=== PATIENT | female | born 1995 | race Caucasian/White ===

== ENCOUNTER 2021-08-07 15:41 | Inpatient (IN) ==
[2021-08-07 16:28] LABS: Basophils # (auto) 0.03 K/uL (0-0.2); Basophils % (auto) 0.3 %; Eosinophils # (auto) 0.06 K/uL (0-0.5); Eosinophils % (auto) 0.6 %; Hematocrit (blood only) 38.6 % (37-47); Hemoglobin 13.3 g/dL (12.0-16.0); Immature Granulocytes # (auto) 0.01 K/uL (0.00-0.02); Immature Granulocytes % (auto) 0.1 %; Lymphocytes # (auto) 0.95 K/uL (1.2-3.4); Lymphocytes % (auto) 10.2 %; Mean Corpuscular Hemoglobin 31.1 pg (25-34); Mean Corpuscular Hgb Conc 34.5 g/dL (32-36); Mean Corpuscular Volume 90.2 fL (80-100); Mean Platelet Volume 10.8 fL (7.4-10.4); Monocytes # (auto) 1.04 K/uL (0.11-0.59); Monocytes % (auto) 11.2 %; Neutrophils # (auto) 7.18 K/uL (1.4-6.5); Neutrophils % (auto) 77.6 %; Platelet Count 213 K/uL (130-400); RDW Coefficient of Variation 12.5 % (11.5-14.5); Red Blood Count 4.28 M/uL (4.2-5.4); White Blood Count 9.27 K/uL (4.8-10.8)
[2021-08-07 16:52] LABS: Albumin Globulin Ratio 1.5 (0.9-2); Albumin Level 4.6 gm/dl (3.4-5.0); BUN Creatinine Ratio 12.8 (10-20); Bilirubin,Total 0.7 mg/dl (0.2-1.0); Calcium 9.3 mg/dl (8.5-10.1); Creatinine Clr Calc Pharmacy 100.5 ml/min; Est GFR (African American) 119.9 ml/min; Est GFR (Non-African American) 103.5 ml/min; Globulin 3.1 gm/dl (2.5-4.0); Total Protein 7.7 gm/dl (6.0-8.3)
[2021-08-07] MEDS ORDERED: SODIUM CHLORIDE 0.9% 1000ML 1,000 ML IV ONE (18:19)
--- NOTE | 2021-08-07 18:21 | Emergency Department Note ---
Impression & Plan Acute appendicitis ADMIT ED Provider Note HPI: The patient is a 26-year-old female who presents the emergency department with a chief complaint of right lower quadrant abdominal pain. Patient states this pain has been constant for the past 2 days. Patient denies any nausea or vomiting, denies any vaginal bleeding or vaginal discharge. Denies any concern for . On arrival to the ED the patient is in no acute distress, she does have some mild tenderness in the right lower quadrant on my exam but she is otherwise hemodynamically stable and afebrile on presentation. ROS: -GI: Right lower quadrant abdominal pain *10 point review systems was conducted and is otherwise negative unless stated above *Outpatient medications and allergy history reviewed PE: General: Alert, NAD HEENT: Normocephalic, atraumatic Eyes: Extraocular eye movement is intact, no scleral erythema Pulmonary: Clear to auscultation bilaterally, no wheezing Cardio: Regular rate and rhythm GI: Abdomen is soft, moderate tenderness to palpation in the right lower quadrant without guarding or rigidity : No suprapubic tenderness MSK: No evidence of trauma or malformation of the extremities, no edema Skin: No evidence of rash Neuro: Alert, no focal deficits Psychiatric: Cooperative Medical Decision Making: Patient presented to the emergency department with 3 days of right lower quadrant abdominal pain. Shortly after arrival IV was established, lab work was obtained, lab work is generally unremarkable, CT imaging of the abdomen pelvis unfortunately does show evidence of acute appendicitis. My reassessment the patient is resting comfortably in bed, rates her pain at a 3 out of 10. She has not had any vomiting here in the ED. She states this pain is been ongoing for 3 days. IV ceftriaxone was ordered, patient was made n.p.o., I did discuss the case with on-call general surgery, Dr. Blanco he did accept the patient to a [facility] bed for planned operative intervention tomorrow morning. Patient was in agreement to this plan and she was admitted in stable condition. Diagnosis: 1. Right lower quadrant abdominal pain, acute 2. Acute appendicitis without perforation or abscess Disposition: Admission Ricky Loredo DO Emergency Medicine Past Med/Surg History Medical History (Updated 08/08/21 @ 01:14 by Ricky Loredo DO) No known health problems Surgical History H/O wisdom tooth extraction Family History Father FHx: renal cell carcinoma, Onset Age: 68 Grandmother (Maternal) FHx: ovarian cancer Grandfather (Paternal) FHx: stroke Other No family history of adverse response to anesthesia Social History Smoking Status: Never smoker Second Hand Exposure: No; Hx Alcohol Use: Yes Alcohol type: beer and wine Hx Substance Use: No Preferred Language: Citizen Of [place] Communication Ability: Effective Motor And Controls Tester Required: No Beliefs That Will Affect Care: None Current Living Situation: Other Current Living Situation Comment: lives with roomate in house Other Information That Helps Us Care for You: No Feels Safe at Home: Yes Safety Concerns: Feels Safe At This Time Assistive Devices: None Allergies Allergies Allergy/AdvReac Type Severity Reaction Status Date / Time No Known Allergies Allergy Verified 08/07/21 22:12 Home Meds Home Medications Medication Instructions Recorded Confirmed levonorgestrel 20 mcg/24 hours (7 20 mcg INTRAUTERINE UD 11/20/19 08/07/21 yrs) 52 mg intrauterine device (Mirena) clindamycin phosphate 1 % lotion 1 applic TOPICAL DAILY PRN 08/07/21 08/07/21 ibuprofen 200 mg tablet (Advil) 600 mg PO Q6H PRN 08/07/21 08/07/21 spironolactone 25 mg tablet 50 mg PO DAILY 08/07/21 08/07/21 Results & Data (ED) Vital Signs Vital Signs - 24 hr 08/07/21 15:43 08/07/21 19:07 08/07/21 21:02 Temperature 36.4 C L Temperature Source Temporal Artery Scan Pulse Rate 84 Pulse Rate [Finger] 74 71 Pulse Rhythm Regular Pulse Strength Normal Respiratory Rate 20 16 16 Respiratory Effort / Characteristics Non-Labored Spontaneous Non-Labored Spontaneous Non-Labored Spontaneous Respiratory Depth Normal Normal Normal Respiratory Pattern Regular Blood Pressure 149/94 H Blood Pressure [Right Arm] 118/80 119/75 Blood Pressure Mean 112 Blood Pressure Mean [Right Arm] 92 89 Blood Pressure Position Sitting Pulse Oximetry 100 94 95 Oxygen Delivery Method Room Air Room Air Room Air Sepsis Recent Fever Within 48 Hours No Sepsis New/Unexplained Change in Mental Status N/A Sepsis Action Taken by Nursing No Action Required Laboratory Data Result diagrams: 08/07/21 16:22 08/07/21 16:22 Lab Results 08/07/21 08/07/21 08/07/21 Range/Units 16:22 16:22 18:39 WBC 9.27 (4.8-10.8) K/uL RBC 4.28 (4.2-5.4) M/uL Hgb 13.3 (12.0-16.0) g/dL Hct 38.6 (37-47) % MCV 90.2 (80-100) fL MCH 31.1 (25-34) pg MCHC 34.5 (32-36) g/dL RDW Std Deviation 41.0 (36.4-46.3) fL RDW Coeff of Michelle 12.5 (11.5-14.5) % Plt Count 213 (130-400) K/uL MPV 10.8 H (7.4-10.4) fL Immature Gran % (Auto) 0.1 % Neut % (Auto) 77.6 % Lymph % (Auto) 10.2 % [place] % (Auto) 11.2 % Eos % (Auto) 0.6 % Baso % (Auto) 0.3 % Neut # (Auto) 7.18 H (1.4-6.5) K/uL Lymph # (Auto) 0.95 L (1.2-3.4) K/uL [place] # (Auto) 1.04 H (0.11-0.59) K/uL Eos # (Auto) 0.06 (0-0.5) K/uL Baso # (Auto) 0.03 (0-0.2) K/uL Immature Gran # (Auto) 0.01 (0.00-0.02) K/uL Sodium 136 (136-145) mmol/L Potassium 4.0 (3.5-5.1) mmol/L Chloride 104 (98-107) mmol/L Carbon Dioxide 25 (21-32) mmol/L Anion Gap 7 (3-11) BUN 10 (6-23) mg/dl Creatinine 0.78 (0.6-1.2) mg/dl Est Cr Clr Drug Dosing 100.5 ml/min Est GFR ( Amer) 119.9 ml/min Est GFR (Non-Af Amer) 103.5 ml/min BUN/Creatinine Ratio 12.8 (10-20) Glucose 104 H (70-99(Fasting)) mg/dl Calcium 9.3 (8.5-10.1) mg/dl Total Bilirubin 0.7 (0.2-1.0) mg/dl AST 14 (13-39) U/L ALT 10 (7-52) U/L Alkaline Phosphatase 67 (34-104) U/L Total Protein 7.7 (6.0-8.3) gm/dl Albumin 4.6 (3.4-5.0) gm/dl Globulin 3.1 (2.5-4.0) gm/dl Albumin/Globulin Ratio 1.5 (0.9-2) Lipase 20 (11-82) U/L Urine Color Yellow Urine Appearance Clear (Clear) Urine pH 6.5 (4.5-7.5) Ur Specific [place] 1.012 (1.000-1.030) Urine Protein Negative (Negative) Urine Glucose (UA) Negative (Negative) Urine Ketones 1+ H (Negative) Urine Blood Negative (Negative) Urine Nitrite Negative (Negative) Urine Bilirubin Negative (Negative) Urine Urobilinogen Negative (Negative) Ur Leukocyte Esterase Negative (Negative) Urine Test (Negative) SARS-CoV-2, RNA, NAAT (NEGATIVE) 08/07/21 08/07/21 Range/Units 18:39 21:40 WBC (4.8-10.8) K/uL RBC (4.2-5.4) M/uL Hgb (12.0-16.0) g/dL Hct (37-47) % MCV (80-100) fL MCH (25-34) pg MCHC (32-36) g/dL RDW Std Deviation (36.4-46.3) fL RDW Coeff of Michelle (11.5-14.5) % Plt Count (130-400) K/uL MPV (7.4-10.4) fL Immature Gran % (Auto) % Neut % (Auto) % Lymph % (Auto) % [place] % (Auto) % Eos % (Auto) % Baso % (Auto) % Neut # (Auto) (1.4-6.5) K/uL Lymph # (Auto) (1.2-3.4) K/uL [place] # (Auto) (0.11-0.59) K/uL Eos # (Auto) (0-0.5) K/uL Baso # (Auto) (0-0.2) K/uL Immature Gran # (Auto) (0.00-0.02) K/uL Sodium (136-145) mmol/L Potassium (3.5-5.1) mmol/L Chloride (98-107) mmol/L Carbon Dioxide (21-32) mmol/L Anion Gap (3-11) BUN (6-23) mg/dl Creatinine (0.6-1.2) mg/dl Est Cr Clr Drug Dosing ml/min Est GFR ( Amer) ml/min Est GFR (Non-Af Amer) ml/min BUN/Creatinine Ratio (10-20) Glucose (70-99(Fasting)) mg/dl Calcium (8.5-10.1) mg/dl Total Bilirubin (0.2-1.0) mg/dl AST (13-39) U/L ALT (7-52) U/L Alkaline Phosphatase (34-104) U/L Total Protein (6.0-8.3) gm/dl Albumin (3.4-5.0) gm/dl Globulin (2.5-4.0) gm/dl Albumin/Globulin Ratio (0.9-2) Lipase (11-82) U/L Urine Color Urine Appearance (Clear) Urine pH (4.5-7.5) Ur Specific [place] (1.000-1.030) Urine Protein (Negative) Urine Glucose (UA) (Negative) Urine Ketones (Negative) Urine Blood (Negative) Urine Nitrite (Negative) Urine Bilirubin (Negative) Urine Urobilinogen (Negative) Ur Leukocyte Esterase (Negative) Urine Test Negative (Negative) SARS-CoV-2, RNA, NAAT NEGATIVE (NEGATIVE) Administered Medications Sodium Chloride (Nss 1000ml) 1,000 mls @ 100 mls/hr IV .Q10H YOUNG Stop: 09/06/21 23:31 Last Admin: 08/07/21 23:48 Dose: 100 mls/hr Documented by: [id number] Ampicillin Sodium/Sulbactam Sodium 1,500 mg/ Sodium Chloride 104 mls @ 200 mls/hr IV Q6H YOUNG; Protocol Stop: 08/18/21 00:00 Last Infusion: 08/08/21 00:53 Dose: 0 mls/hr Documented by: [id number] Admin: 08/08/21 00:17 Dose: 200 mls/hr Documented by: [id number] Discontinued Medications Sodium Chloride (Nss 1000ml) 1,000 mls @ 999 mls/hr IV .Q1H1M ONE Stop: 08/07/21 19:19 Last Infusion: 08/07/21 19:37 Dose: 0 mls/hr Documented by: [id number] Admin: 08/07/21 18:28 Dose: 999 mls/hr Documented by: [id number] Ceftriaxone Sodium (Rocephin) 2,000 mg in 70 mls @ 140 mls/hr IV NOW STA Stop: 08/07/21 22:02 Last Infusion: 08/07/21 23:15 Dose: 0 mls/hr Documented by: [id number] Admin: 08/07/21 22:40 Dose: 140 mls/hr Documented by: [id number] Ioversol (Optiray 320 100ml) 96 ml IV ONCE ONE Stop: 08/07/21 19:50 Last Admin: 08/07/21 19:49 Dose: 96 ml Documented by: [id number] Imaging Data Radiologist's Impression: Abdomen/Pelvis CT 08/07/21 18:19 CT SCAN OF THE ABDOMEN AND PELVIS WITH IV CONTRAST CLINICAL HISTORY: Right lower quadrant abdominal pain. COMPARISON STUDY: Pelvic ultrasound dated 01/28/2021. TECHNIQUE: Following the IV administration of 96 cc of Optiray 320, CT scan of the abdomen and pelvis is performed from the lung bases to the proximal femora. Images are reviewed in the axial, sagittal, and coronal planes. IV contrast was administered without complication. A dose lowering technique was utilized adh ering to the principles of ALARA. CT DOSE: 280.30 mGy.cm FINDINGS: Lung bases: The heart is normal in size and without pericardial effusion. The lung bases are clear. Liver: The contrast-enhanced liver is normal in size, contour, and attenuation. There is no intrahepatic biliary ductal dilatation. The hepatic veins and portal veins are patent. Gallbladder: Unremarkable. Spleen: Normal in size and attenuation. Pancreas: Unremarkable. Adrenal glands: Unremarkable. Kidneys: The contrast enhanced kidneys are normal in size and without hydronephrosis. The kidneys enhance symmetrically. Abdominal vasculature: The abdominal aorta is normal in course and caliber. Bowel: There is no bowel obstruction. The appendix is dilated and fluid-filled measuring up to 1.0 cm in diameter. This is best seen on image #273. The appendiceal wall is thickened and hyperemic and there is periappendiceal inflammation. Findings are consistent with acute appendicitis. No organized fluid collection is seen to suggest abscess. Wall thickening and edema of the adjacent right colon is likely related to appendicitis. Peritoneum: There is no intraperitoneal free air or abdominal ascites. There is a fat-containing umbilical hernia. Lymphadenopathy: None. Pelvic viscera: The bladder wall appears circumferentially thickened. The uterus and adnexa are normal as visualized noting an intrauterine device in place. There is trace free fluid in the cul-de-sac. Skeletal structures: No lytic or blastic lesions are seen. IMPRESSION: 1. Findings are consistent with severe acute appendicitis. 2. There is no CT evidence of abscess or perforation. 3. Wall thickening and inflammation of the adjacent cecum is likely related to appendicitis. 4. Trace nonspecific free fluid is noted in the cul-de-sac. 5. The bladder wall appears circumferentially thickened. Correlate with clinical findings and urinalysis. ACT 112: Negative or not required by law. Electronically signed by: Benny Villanueva M.D. 08/07/2021 9:27 PM Discharge Plan Visit Data Chief Complaint: Abdominal Pain Stated Complaint: RT SIDED ABD PAIN, REFERRED BY [facility] ED Provider: Ricky Loredo Discharge Problem: Acute appendicitis Patient Disposition: Admitted As Inpatient Discharge Instructions Interventions: ED Discharge Assessment Last Done: 08/07/21 22:53 Discharge Problem: Acute appendicitis Qualifiers: Acute appendicitis type: unspecified acute appendicitis type Qualified Code(s): K35.80 - Unspecified acute appendicitis
[2021-08-07 18:53] LABS: Appearance Urine Clear (Clear); Bilirubin Urine Negative (Negative); Blood Urine Negative (Negative); Color Urine Yellow; Glucose Urine UA Negative (Negative); Ketones Urine 1+ (Negative); Leukocyte Esterase Urine Negative (Negative); Nitrite Urine Negative (Negative); Protein Urine Negative (Negative); Specific Gravity Urine 1.012 (1.000-1.030); Urobilinogen Urine Negative (Negative); pH Urine 6.5 (4.5-7.5)
[2021-08-07 19:17] LABS: Pregnancy Test, Urine Negative (Negative)
[2021-08-07] MEDS ORDERED: OPTIRAY 320 100ml IV ONE (19:49)
--- NOTE | 2021-08-07 21:29 | CT Scan Report ---
CT SCAN OF THE ABDOMEN AND PELVIS WITH IV CONTRAST CLINICAL HISTORY: Right lower quadrant abdominal pain. COMPARISON STUDY: Pelvic ultrasound dated 01/28/2021. TECHNIQUE: Following the IV administration of 96 cc of Optiray 320, CT scan of the abdomen and pelvi s is performed from the lung bases to the proximal femora. Images are reviewed in the axial, sagittal , and coronal planes. IV contrast was administered without complication. A dose lowering technique wa s utilized adhering to the principles of ALARA. CT DOSE: 280.30 mGy.cm FINDINGS: Lung bases: The heart is normal in size and without pericardial effusion. The lung bases are clear. Liver: The contrast-enhanced liver is normal in size, contour, and attenuation. There is no intrahepa tic biliary ductal dilatation. The hepatic veins and portal veins are patent. Gallbladder: Unremarkable. Spleen: Normal in size and attenuation. Pancreas: Unremarkable. Adrenal glands: Unremarkable. Kidneys: The contrast enhanced kidneys are normal in size and without hydronephrosis. The kidneys enh ance symmetrically. Abdominal vasculature: The abdominal aorta is normal in course and caliber. Bowel: There is no bowel obstruction. The appendix is dilated and fluid-filled measuring up to 1.0 cm in diameter. This is best seen on image #273. The appendiceal wall is thickened and hyperemic and th ere is periappendiceal inflammation. Findings are consistent with acute appendicitis. No organized fl uid collection is seen to suggest abscess. Wall thickening and edema of the adjacent right colon is l ikely related to appendicitis. Peritoneum: There is no intraperitoneal free air or abdominal ascites. There is a fat-containing umbi lical hernia. Lymphadenopathy: None. Pelvic viscera: The bladder wall appears circumferentially thickened. The uterus and adnexa are andre l as visualized noting an intrauterine device in place. There is trace free fluid in the cul-de-sac. Skeletal structures: No lytic or blastic lesions are seen. IMPRESSION: 1. Findings are consistent with severe acute appendicitis. 2. There is no CT evidence of abscess or perforation. 3. Wall thickening and inflammation of the adjacent cecum is likely related to appendicitis. 4. Trace nonspecific free fluid is noted in the cul-de-sac. 5. The bladder wall appears circumferentially thickened. Correlate with clinical findings and urinaly sis. ACT 112: Negative or not required by law. Electronically signed by: Benny Villanueva M.D. 08/07/2021 9:27 PM
[2021-08-07] MEDS ORDERED: cefTRIAXone SODIUM 2,000 MG/70 ML BAG IV STA (21:33)
--- NOTE | 2021-08-07 22:06 | History & Physical Report ---
Date of Service August 07, 2021 Assessment & Plan (1) Acute appendicitis: Plan: Plan laparoscopic appendectomy. Risks of bleeding, infection, conversion to open, postop ileus/ abscess discussed. Expected postop recovery of 1-2 weeks reviewed. consent signed. For OR. History of Present Illness Chief Complaint: abdominal pain Primary Care Provider: [facility] 26 yr old woman who presents to ER with abdominal pain, right lower quadrant of a few days duration. No nausea or vomiting. No fevers or chills. No change in bowel habits. Pain worse with jostling movement such as running. associated low appetite and bloating. No similar symptoms prior. Moderate intensity but has improved overnight. Still sore if she moves around or tenses her abdomen. CT scan suggestive of acute appendicitis PMH notable for acne for which she takes spirinolactone. Had a knee surgery for meniscal tear last year. Allergies Allergy/AdvReac Type Severity Reaction Status Date / Time No Known Allergies Allergy Verified 08/07/21 22:12 Home Medications Medication Instructions Recorded Confirmed Type levonorgestrel 20 mcg/24 hours (7 20 mcg INTRAUTERINE UD 11/20/19 08/07/21 History yrs) 52 mg intrauterine device (Mirena) clindamycin phosphate 1 % lotion 1 applic TOPICAL DAILY PRN 08/07/21 08/07/21 History ibuprofen 200 mg tablet (Advil) 600 mg PO Q6H PRN 08/07/21 08/07/21 History spironolactone 25 mg tablet 50 mg PO DAILY 08/07/21 08/07/21 History Past Med/Surg History Medical History No known health problems Surgical History H/O wisdom tooth extraction Family History Father FHx: renal cell carcinoma, Onset Age: 68 Grandmother (Maternal) FHx: ovarian cancer Grandfather (Paternal) FHx: stroke Other No family history of adverse response to anesthesia Social History Smoking Status: Never smoker Second Hand Exposure: No; Hx Alcohol Use: Yes Alcohol type: beer and wine Hx Substance Use: No Preferred Language: [place] Communication Ability: Effective 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 Beliefs That Will Affect Care: None Current Living Situation: Other Current Living Situation Comment: lives with roomate in house Other Information That Helps Us Care for You: No Feels Safe at Home: Yes Safety Concerns: Feels Safe At This Time Assistive Devices: None Review of Systems Review of Systems: All systems reviewed & are unremarkable except as noted in HPI & below Physical Exam Constitutional: WD/WN, vitals as above Eyes: PERRL, conjunctivae normal, anicteric sclerae ENMT: external ear and nose normal, oropharynx normal Neck: trachea midline Respiratory: normal respiratory effort, lungs clear to auscultation Cardiovascular: RRR, no murmur, no edema Gastrointestinal (Abdomen): Inspection/Auscultation: abdomen normal to inspection and normal bowel sounds; abdomen not distended Percussion/Palpation: + abdomen tender (right lower quadrant, mild guarding) and abdomen soft; no hepatosplenomegaly Musculoskeletal: no cyanosis or clubbing, extremities motor strength 5/5 Neurologic: awake; no focal motor deficits Psychiatric: A+Ox3, euthymic affect Results & Data Results & Data ([facility]) Vital Signs (Past 12 Hours) Vital Signs Temp Pulse Pulse Resp BP BP Pulse Ox 08/07/21 21:02 71 16 119/75 95 08/07/21 19:07 74 16 118/80 94 08/07/21 15:43 36.4 C L 84 20 149/94 H 100 Laboratory Results 08/07/21 08/07/21 08/07/21 Range/Units 21:40 18:45 18:39 WBC (4.8-10.8) K/uL RBC (4.2-5.4) M/uL Hgb (12.0-16.0) g/dL Hct (37-47) % MCV (80-100) fL MCH (25-34) pg MCHC (32-36) g/dL RDW Std Deviation (36.4-46.3) fL RDW Coeff of Michelle (11.5-14.5) % Plt Count (130-400) K/uL MPV (7.4-10.4) fL Immature Gran % (Auto) % Neut % (Auto) % Lymph % (Auto) % [place] % (Auto) % Eos % (Auto) % Baso % (Auto) % Neut # (Auto) (1.4-6.5) K/uL Lymph # (Auto) (1.2-3.4) K/uL [place] # (Auto) (0.11-0.59) K/uL Eos # (Auto) (0-0.5) K/uL Baso # (Auto) (0-0.2) K/uL Immature Gran # (Auto) (0.00-0.02) K/uL Sodium (136-145) mmol/L Potassium (3.5-5.1) mmol/L Chloride (98-107) mmol/L Carbon Dioxide (21-32) mmol/L Anion Gap (3-11) BUN (6-23) mg/dl Creatinine (0.6-1.2) mg/dl Est Cr Clr Drug Dosing ml/min Est GFR ( Amer) ml/min Est GFR (Non-Af Amer) ml/min BUN/Creatinine Ratio (10-20) Glucose (70-99(Fasting)) mg/dl Calcium (8.5-10.1) mg/dl Total Bilirubin (0.2-1.0) mg/dl AST (13-39) U/L ALT (7-52) U/L Alkaline Phosphatase (34-104) U/L Total Protein (6.0-8.3) gm/dl Albumin (3.4-5.0) gm/dl Globulin (2.5-4.0) gm/dl Albumin/Globulin Ratio (0.9-2) Lipase (11-82) U/L Urine Color Urine Appearance (Clear) Urine pH (4.5-7.5) Ur Specific [place] (1.000-1.030) Urine Protein (Negative) Urine Glucose (UA) (Negative) Urine Ketones (Negative) Urine Blood (Negative) Urine Nitrite (Negative) Urine Bilirubin (Negative) Urine Urobilinogen (Negative) Ur Leukocyte Esterase (Negative) Urine Test Negative (Negative) POC Ur Test Pending SARS-CoV-2, RNA, NAAT Pending 08/07/21 08/07/21 08/07/21 Range/Units 18:39 16:22 16:22 WBC 9.27 (4.8-10.8) K/uL RBC 4.28 (4.2-5.4) M/uL Hgb 13.3 (12.0-16.0) g/dL Hct 38.6 (37-47) % MCV 90.2 (80-100) fL MCH 31.1 (25-34) pg MCHC 34.5 (32-36) g/dL RDW Std Deviation 41.0 (36.4-46.3) fL RDW Coeff of Michelle 12.5 (11.5-14.5) % Plt Count 213 (130-400) K/uL MPV 10.8 H (7.4-10.4) fL Immature Gran % (Auto) 0.1 % Neut % (Auto) 77.6 % Lymph % (Auto) 10.2 % [place] % (Auto) 11.2 % Eos % (Auto) 0.6 % Baso % (Auto) 0.3 % Neut # (Auto) 7.18 H (1.4-6.5) K/uL Lymph # (Auto) 0.95 L (1.2-3.4) K/uL [place] # (Auto) 1.04 H (0.11-0.59) K/uL Eos # (Auto) 0.06 (0-0.5) K/uL Baso # (Auto) 0.03 (0-0.2) K/uL Immature Gran # (Auto) 0.01 (0.00-0.02) K/uL Sodium 136 (136-145) mmol/L Potassium 4.0 (3.5-5.1) mmol/L Chloride 104 (98-107) mmol/L Carbon Dioxide 25 (21-32) mmol/L Anion Gap 7 (3-11) BUN 10 (6-23) mg/dl Creatinine 0.78 (0.6-1.2) mg/dl Est Cr Clr Drug Dosing 100.5 ml/min Est GFR ( Amer) 119.9 ml/min Est GFR (Non-Af Amer) 103.5 ml/min BUN/Creatinine Ratio 12.8 (10-20) Glucose 104 H (70-99(Fasting)) mg/dl Calcium 9.3 (8.5-10.1) mg/dl Total Bilirubin 0.7 (0.2-1.0) mg/dl AST 14 (13-39) U/L ALT 10 (7-52) U/L Alkaline Phosphatase 67 (34-104) U/L Total Protein 7.7 (6.0-8.3) gm/dl Albumin 4.6 (3.4-5.0) gm/dl Globulin 3.1 (2.5-4.0) gm/dl Albumin/Globulin Ratio 1.5 (0.9-2) Lipase 20 (11-82) U/L Urine Color Yellow Urine Appearance Clear (Clear) Urine pH 6.5 (4.5-7.5) Ur Specific [place] 1.012 (1.000-1.030) Urine Protein Negative (Negative) Urine Glucose (UA) Negative (Negative) Urine Ketones 1+ H (Negative) Urine Blood Negative (Negative) Urine Nitrite Negative (Negative) Urine Bilirubin Negative (Negative) Urine Urobilinogen Negative (Negative) Ur Leukocyte Esterase Negative (Negative) Urine Test (Negative) POC Ur Test SARS-CoV-2, RNA, NAAT Diagnostic Findings CT SCAN OF THE ABDOMEN AND PELVIS WITH IV CONTRAST CLINICAL HISTORY: Right lower quadrant abdominal pain. COMPARISON STUDY: Pelvic ultrasound dated 01/28/2021. TECHNIQUE: Following the IV administration of 96 cc of Optiray 320, CT scan of the abdomen and pelvis is performed from the lung bases to the proximal femora. Images are reviewed in the axial, sagittal, and coronal planes. IV contrast was administered without complication. A dose lowering technique was utilized adhering to the principles of ALARA. CT DOSE: 280.30 mGy.cm FINDINGS: Lung bases: The heart is normal in size and without pericardial effusion. The lung bases are clear. Liver: The contrast-enhanced liver is normal in size, contour, and attenuation. There is no intrahepatic biliary ductal dilatation. The hepatic veins and portal veins are patent. Gallbladder: Unremarkable. Spleen: Normal in size and attenuation. Pancreas: Unremarkable. Adrenal glands: Unremarkable. Kidneys: The contrast enhanced kidneys are normal in size and without hydronephrosis. The kidneys enhance symmetrically. Abdominal vasculature: The abdominal aorta is normal in course and caliber. Bowel: There is no bowel obstruction. The appendix is dilated and fluid-filled measuring up to 1.0 cm in diameter. This is best seen on image #273. The appendiceal wall is thickened and hyperemic and there is periappendiceal inflammation. Findings are consistent with acute appendicitis. No organized fluid collection is seen to suggest abscess. Wall thickening and edema of the adjacent right colon is likely related to appendicitis. Peritoneum: There is no intraperitoneal free air or abdominal ascites. There is a fat-containing umbilical hernia. Lymphadenopathy: None. Pelvic viscera: The bladder wall appears circumferentially thickened. The uterus and adnexa are normal as visualized noting an intrauterine device in place. There is trace free fluid in the cul-de-sac. Skeletal structures: No lytic or blastic lesions are seen. IMPRESSION: 1. Findings are consistent with severe acute appendicitis. 2. There is no CT evidence of abscess or perforation. 3. Wall thickening and inflammation of the adjacent cecum is likely related to appendicitis. 4. Trace nonspecific free fluid is noted in the cul-de-sac. 5. The bladder wall appears circumferentially thickened. Correlate with clinical findings and urinalysis. Code Status & VTE Plan VTE Prophylaxis Plan VTE Prophylaxis will be ordered: Yes
[2021-08-07] MEDS ORDERED: MoRPHine SULFATE 2 MG/ML CARP IV PRN (23:32)
[2021-08-07] MEDS ORDERED: MoRPHine SULFATE 4 MG/ML 1 ML CARP\\VIAL IV PRN (23:32)
[2021-08-07] MEDS ORDERED: ONDANSETRON INJ 2 MG/ML 2 ML VIAL IV PRN (23:32)
[2021-08-07] MEDS ORDERED: oxyCODONE/ACETAMINOPHEN 5mg/325mg TAB PO PRN ×2 (23:32)
[2021-08-07] MEDS: SODIUM CHLORIDE 0.9% 1000ML 1,000 ML IV SCH (23:48)
[2021-08-08] MEDS: AMPICILLIN/SULBACTAM SOD 1,500 MG in 0.9 % SODIUM CHLORIDE 100 ML IV SCH ×4 (00:17→17:55)
[2021-08-08] MEDS ORDERED: MIDAZOLAM HCL 1 MG/ML 2ML VIAL ONE (08:26)
[2021-08-08] MEDS ORDERED: fentaNYL citrate 100 MCG/2 ML VIAL ONE (08:26)
[2021-08-08] MEDS ORDERED: PROPOFOL IV EMULSION 10 MG/ML 20 ML VIAL IV ONE (08:28)
[2021-08-08] MEDS ORDERED: ROCURONIUM BROMIDE 10 MG/ML 5 ML VIAL IV ONE ×3 (08:28)
[2021-08-08] MEDS ORDERED: LIDOCAINE 2% 2 ML VIAL/AMP(20MG/ML) INFIL ONE (08:29)
[2021-08-08] MEDS ORDERED: ATROPINE SULFATE 0.1 MG/ML 10ML SYR IV PRN (09:08)
[2021-08-08] MEDS ORDERED: fentaNYL citrate 100 MCG/2 ML VIAL IV PRN (09:08)
[2021-08-08] MEDS ORDERED: ePHEDrine sulfate 50 MG/ML AMP IV PRN (09:08)
[2021-08-08] MEDS ORDERED: ONDANSETRON INJ 2 MG/ML 2 ML VIAL IV PRN (09:08)
[2021-08-08] MEDS ORDERED: HYDROmorphone INJ 2 MG/ML SYR/VIAL IV PRN (09:08)
--- NOTE | 2021-08-08 09:08 | Anesthesiology Consultation ---
Date of Service August 08, 2021 Assessment & Plan ASA ASA1 Proposed Anesthesia Anesthesia Type: General Risk / Benefits Reviewed With: PT / POA / Parent / Guardian, Accepts Plan and Informed Consent Obtained History Surgery Operation Date: 08/08/21 09:00 Proposed Procedures p Laparoscopic Appendectomy - Tyra Blanco MD Height/Weight Height: 5 ft 6 in Weight: 65.5 kg Allergies Allergy/AdvReac Type Severity Reaction Status Date / Time No Known Allergies Allergy Verified 08/07/21 22:12 Medications Home Medications Medication Instructions Recorded Confirmed Last Taken levonorgestrel 20 mcg/24 hours (7 20 mcg INTRAUTERINE UD 11/20/19 08/07/21 Unknown yrs) 52 mg intrauterine device (Mirena) clindamycin phosphate 1 % lotion 1 applic TOPICAL DAILY PRN 08/07/21 08/07/21 Unknown ibuprofen 200 mg tablet (Advil) 600 mg PO Q6H PRN 08/07/21 08/07/21 Unknown spironolactone 25 mg tablet 50 mg PO DAILY 08/07/21 08/07/21 Unknown Active Medications Generic Name Dose Route Start Last Admin Trade Name Freq PRN Reason Stop Dose Admin Sodium Chloride 1,000 mls @ 100 mls/hr 08/07/21 23:32 08/07/21 23:48 Nss 1000ml IV 09/06/21 23:31 100 mls/hr .Q10H YOUNG Administration Ampicillin Sodium/Sulbactam 104 mls @ 200 mls/hr 08/08/21 00:00 08/08/21 06:19 Sodium 1,500 mg/ Sodium IV 08/18/21 00:00 Infused Chloride Q6H YOUNG Infusion Protocol NPO Date Last Intake of Fluids: 08/08/21 Time Last Intake of Fluids: 00:00 Past Medical History Medical History No known health problems Exercise / Class Metabolic Activity II 4-5 Yardwork/Stairs/Walk up hill Past Family History Family History Father FHx: renal cell carcinoma, Onset Age: 68 Grandmother (Maternal) FHx: ovarian cancer Grandfather (Paternal) FHx: stroke Other No family history of adverse response to anesthesia Past Surgical History Surgical History H/O wisdom tooth extraction Past Anesthesia History No Hx of Anesthesia Complications and No Family Hx of Anesthesia Complications History of PONV No Hx of PONV and No Hx of Motion Sickness Social History Smoking Status: Never smoker Hx Alcohol Use: Yes Alcohol type: beer and wine alcohol intake frequency: a few times a week Hx Substance Use: No substance use type: does not use Review of Systems denies fever/cough/ colds/ chest pain/ SOB/ EDWIN denies EDWIN Physical Exam Vital Signs Last Vital Signs Temp 36.6 C 08/08/21 07:44 Pulse 81 08/08/21 07:44 Resp 16 08/08/21 07:44 BP 102/58 L 08/08/21 07:44 Pulse Ox 97 08/08/21 07:44 ENMT Mouth: no TMJ abnormality and no dentition abnormality Thyromental Distance: > or= 3.5 Finger Breadths Mallampati Class: II Neck neck extension not limited Respiratory normal respiratory effort; no respiratory distress Auscultation: lungs clear to auscultation bilaterally Cardiovascular Rate/Rhythm: regular rate and regular rhythm Neurologic moves all extremities Psychiatric Orientation: alert and oriented x 3 Testing Laboratory Results 08/07/21 16:22 08/07/21 16:22 Urine Color Yellow 08/07/21 18:39 Urine Appearance Clear (Clear) 08/07/21 18:39 Urine pH 6.5 (4.5-7.5) 08/07/21 18:39 Ur Specific [place] 1.012 (1.000-1.030) 08/07/21 18:39 Urine Protein Negative (Negative) 08/07/21 18:39 Urine Glucose (UA) Negative (Negative) 08/07/21 18:39 Urine Ketones 1+ (Negative) H 08/07/21 18:39 Urine Nitrite Negative (Negative) 08/07/21 18:39 Ur Leukocyte Esterase Negative (Negative) 08/07/21 18:39 Urine Test Negative (Negative) 08/07/21 18:39 08/07/21 08/07/21 18:45 18:39 Urine Test Negative POC Ur Test Pending
[2021-08-08] MEDS ORDERED: BUPIVACAINE 0.5 % 5 MG/1 ML MPF 30ML VIAL ONE (09:13)
[2021-08-08] MEDS ORDERED: ONDANSETRON INJ 2 MG/ML 2 ML VIAL ONE (09:26)
[2021-08-08] MEDS ORDERED: DEXAMETHASONE SOD INJ 4 MG/ML VIAL ONE (09:26)
[2021-08-08] MEDS ORDERED: GLYCOPYRROLATE 0.2 MG/ML VIAL ONE (09:35)
[2021-08-08] MEDS ORDERED: NEOSTIGMINE METHYLSULFATE 1 MG/ML 10ML VIAL ONE (09:35)
--- NOTE | 2021-08-08 10:14 | Operative Report ---
Post Operative Report Pre & Post Diagnosis Operation Date: 08/08/21 09:00 Pre-Op Diagnosis: Acute appendicitis Post-Op Diagnosis: Acute appendicitis with thickened cecum I identified the patient and participated in the time-out.: Yes Procedure Operation Date: 08/08/21 09:00 Actual Procedures p Laparoscopic Appendectomy - Tyra Blanco MD Surgeon Tyra Blanco MD Corporate Training Manager none Estimated Blood Loss 5 Findings Consistent with Post-Op Diagnosis small appendix with inflammation at its base but normal tip. Cecum appeared thickened, ? inflammation, ? mass. No evidence of creeping fat or other areas of abnormality in the bowel Fluids 500 cc Specimens appendix Drains none Anesthesia Type General Complications none Disposition Accompanied Patient To Recovery: No Disposition: Recovery Room Indications 26 yr old woman who presented with a few days of right lower quadrant pain. CT scan suggestive of acute appendicitis with adjacent wall thickening and edema of right colon felt to be secondary to acute appendicitis. Consented for laparoscopic appendectomy. Description of Procedure The patient was on unasyn preoperatively. She had placement of SCD's. After the induction of general endotracheal anesthesia, she was positioned in trendelenberg with her left arm tucked. Her abdomen was sterilely prepped and draped. An incision was made in the umbilicus below her umbilical ring site and a veress needle placed into the peritoneal cavity. This was tested with the saline drop test and pneumoperitoneum established. Initial pressure was 2 mmHg and this was taken to 15 mmHg. A 12 mm trocar was placed with the camera through the trocar site. Two additional 5 mm trocars were placed under direct vision - one in the left lower quadrant, another in the midline pubic area. Initial inspection revealed an inflamed posterior portion of the cecum which was attached to the lateral side wall. This was bluntly taken down and there was a suggestion of a fullness/ mass within the cecum. The appendix was identified and did appear to have a normal tip but inflammation near its base. It was small (4 cm in length and about 1 cm in width). No other areas of abnormality were seen in the bowel or the liver. It was unclear if the appendix was causing the cecal changes or if the cecal changes were causing the appendix thickening. Decision was made to remove the appendix and plan for outpatient colonoscopy to evaluate the cecum. A window was created on the base of the appendix and it was divided off of the cecum with a firing of the 45 mm purple load. The mesentary was taken with another firing of the farrell load. It was placed in an endobag and removed through the umbilical incision. The abdomen was irrigated and suctioned clear. The trocars were removed. 30 cc of 0.5% marcaine were used as local anesthesia. The fascia of the umbilical incision was closed with anteriorly placed 0 vicryl sutures. The skin of all three incisions was closed with interrrupted 4-0 vicryl sutures. Steristrips and sterile dressings were applied. She was awakened and taken to recovery in stable condition. Photos were taken of the intraoperative findings. I attest to the content of the Intraoperative Record and any orders documented therein. Any exceptions are noted below.
--- NOTE | 2021-08-08 10:41 | Anesthesiology Progress Note ---
Date of Service August 08, 2021 Anesthesia Post Procedure Vital Signs Vital Signs: Temp Pulse Pulse Pulse Resp BP BP 08/08/21 10:35 82 20 121/61 08/08/21 10:25 79 19 120/63 08/08/21 10:17 36 C L 99 H 18 121/67 08/08/21 07:44 36.6 C 81 16 102/58 L 08/07/21 23:22 36.7 C 71 16 114/62 08/07/21 22:48 68 16 126/72 08/07/21 21:02 71 16 119/75 08/07/21 19:07 74 16 118/80 08/07/21 15:43 36.4 C L 84 20 149/94 H Pulse Ox 08/08/21 10:35 97 08/08/21 10:25 100 08/08/21 10:17 97 08/08/21 07:44 97 08/07/21 23:22 99 08/07/21 22:48 99 08/07/21 21:02 95 08/07/21 19:07 94 08/07/21 15:43 100 Pain Intensity Right Lower Abdomen: Pain Intensity: 2 Transfer of Care Handoff Completed per policy Notes Mental Status: alert / awake / arousable and participated in evaluation Patient Amnestic to Procedure: Yes Nausea / Vomiting: adequately controlled Pain: adequately controlled Airway Patency, RR, SpO2: stable & adequate BP & HR: stable & adequate Hydration State: stable & adequate Anesthetic Complications: no major complications apparent and Pt Satisfied with anesthetic care
[2021-08-08] MEDS: SODIUM CHLORIDE 0.9% 1000ML 1,000 ML IV SCH ×2 (12:28→22:47)
[2021-08-09] MEDS: AMPICILLIN/SULBACTAM SOD 1,500 MG in 0.9 % SODIUM CHLORIDE 100 ML IV SCH ×3 (00:04→11:02)
[2021-08-09] MEDS: SODIUM CHLORIDE 0.9% 1000ML 1,000 ML IV SCH ×2 (05:59→15:12)
[2021-08-09] MEDS ORDERED: SPIRONOLACTONE 25 MG TAB PO SCH (09:00)
--- NOTE | 2021-08-09 09:56 | Surgery Progress Note ---
Date of Service August 09, 2021 Assessment & Plan (1) Acute appendicitis: Plan: s/p lap appendectomy- POD#2. overall looking well. Intraop findings notable for inflammation/ ? fullness/ mass of cecum. Photos given to patient and reviewed with her. Will need outpatient GI eval for colonoscopy in next 4-6 weeks (should wait 4 weeks from surgery at least). Will add miralax - if able to pass gas, have bowel movement - can be discharged home. Admission and Anticipated Discharge Date Admission Date: August 08, 2021 Subjective Overall feels well except for bloating. No nausea or vomiting. Not passing flatus or having bowel movements. Pain is manageable, not requiring narcotics. Physical Exam Constitutional: WD/WN, vitals as above Eyes: PERRL, conjunctivae normal, anicteric sclerae Respiratory: normal respiratory effort, lungs clear to auscultation Cardiovascular: RRR, no murmur, no edema Gastrointestinal (Abdomen): soft, nontender, quiet bowel tones, moderate distention, incisions clean and intact Neurologic: awake; no focal motor deficits Psychiatric: A+Ox3, euthymic affect Results & Data ([facility]) Vital Signs (Past 12 Hours) Vital Signs Temp Pulse Pulse Resp BP Pulse Ox 08/09/21 07:59 36.2 C L 65 18 111/68 98 08/09/21 04:00 36.8 C 59 L 14 108/65 97 08/09/21 00:09 36.8 C 69 16 107/55 L 97 (1) Acute appendicitis Acute appendicitis type: unspecified acute appendicitis type Qualified Code(s): K35.80 - Unspecified acute appendicitis
[2021-08-09] MEDS ORDERED: POLYETHYLENE (MIRALAX) 17 GM PACK PO SCH (10:00)
[2021-08-09] MEDS ORDERED: bisacodyL 5 MG TABEC PO PRN (14:38)
--- NOTE | 2021-08-09 16:12 | Discharge Summary ---
Date of Service August 09, 2021 Admission HPI Per Admitting Provider 26 yr old woman who presents to ER with abdominal pain, right lower quadrant of a few days duration. No nausea or vomiting. No fevers or chills. No change in bowel habits. Pain worse with jostling movement such as running. associated low appetite and bloating. No similar symptoms prior. Moderate intensity but has improved overnight. Still sore if she moves around or tenses her abdomen. CT scan suggestive of acute appendicitis PMH notable for acne for which she takes spirinolactone. Had a knee surgery for meniscal tear last year. Admission Exam (Per Admitting) Constitutional WD/WN, vitals as above Eyes PERRL, conjunctivae normal, anicteric sclerae ENMT external ear and nose normal, oropharynx normal Neck trachea midline Respiratory normal respiratory effort, lungs clear to auscultation Cardiovascular RRR, no murmur, no edema Gastrointestinal (Abdomen) Inspection/Auscultation: abdomen normal to inspection and normal bowel sounds; abdomen not distended Percussion/Palpation: + abdomen tender (right lower quadrant, mild guarding) and abdomen soft; no hepatosplenomegaly Musculoskeletal no cyanosis or clubbing, extremities motor strength 5/5 Neurologic awake; no focal motor deficits Psychiatric A+Ox3, euthymic affect Discharge Data Consultations 08/07/21 22:02 ED Decision to Admit Stat Procedures Performed Operation Date: 08/08/21 09:00 Actual Procedures p Laparoscopic Appendectomy - Tyra Blanco MD Hospital Course (1) Acute appendicitis: s/p lap appendectomy- POD#2. overall looking well. Intraop findings notable for inflammation/ ? fullness/ mass of cecum. Photos given to patient and reviewed with her. Will need outpatient GI eval for colonoscopy in next 4-6 weeks (should wait 4 weeks from surgery at least). Will add miralax - if able to pass gas, have bowel movement - can be discharged home.
--- NOTE | 2021-08-09 16:13 | Discharge Summary ---
Date of Service August 09, 2021 Admission HPI Per Admitting Provider 26 yr old woman who presents to ER with abdominal pain, right lower quadrant of a few days duration. No nausea or vomiting. No fevers or chills. No change in bowel habits. Pain worse with jostling movement such as running. associated low appetite and bloating. No similar symptoms prior. Moderate intensity but has improved overnight. Still sore if she moves around or tenses her abdomen. CT scan suggestive of acute appendicitis PMH notable for acne for which she takes spirinolactone. Had a knee surgery for meniscal tear last year. Admission Exam (Per Admitting) Eyes PERRL, conjunctivae normal, anicteric sclerae Discharge Data Consultations 08/07/21 22:02 ED Decision to Admit Stat Procedures Performed Operation Date: 08/08/21 09:00 Actual Procedures p Laparoscopic Appendectomy - Tyra Blanco MD Hospital Course (1) Acute appendicitis: s/p lap appendectomy- POD#2. overall looking well. Intraop findings notable for inflammation/ ? fullness/ mass of cecum. Photos given to patient and reviewed with her. Will need outpatient GI eval for colonoscopy in next 4-6 weeks (should wait 4 weeks from surgery at least). Will add miralax - if able to pass gas, have bowel movement - can be discharged home.
== END 2021-08-09 17:08 | disposition home or self-care (01) | DRG 343 ==
LOC: 3N 15:41 → ED 15:41 → 3N 22:53